=== PATIENT | female | born 1965 | race Caucasian/White ===

== ENCOUNTER 2017-08-18 17:28 | Emergency (ER) | payer OTHER ==
[~2017-08-18] VITALS: Ht 160 cm; Wt 91.6 kg
[~2017-08-18 17:28] MED LIST: ATEN50TA8 PO; IBUP-2213 PO; LISI-420 PO; METF500T PO; OMEP40EC1 PO
[2017-08-18 17:33] VITALS: BP 139/79
[2017-08-18] MEDS: ASPIRIN 325 MG TAB PO ONE (18:50)
[2017-08-18 18:54] LABS: BASOPHILS # (AUTO) 0.1 K/uL (0.00-0.22); BASOPHILS % (AUTO) 0.5 % (0.0-2.0); EOSINOPHILS # (AUTO) 0.5 K/uL (0-0.4); EOSINOPHILS % (AUTO) 3.7 % (0.0-4.0); HEMATOCRIT 41.7 % (36-48); HEMOGLOBIN 13.6 g/dL (12.0-16.0); LYMPHOCYTES # (AUTO) 5.4 K/uL (2.5-16.5); LYMPHOCYTES % (AUTO) 43.5 % (20.5-51.1); MEAN CORPUSCULAR HEMOGLOBIN 29 pg (27-31); MEAN CORPUSCULAR HGB CONC 33 g/dL (33-37); MEAN CORPUSCULAR VOLUME 89.9 fL (80-94); MONOCYTES # (AUTO) 0.8 K/uL (0.8-1.0); MONOCYTES % (AUTO) 6.1 % (1.7-9.3); NEUTROPHILS # (AUTO) 5.8 K/uL (1.8-7.7); NEUTROPHILS % (AUTO) 46.2 % (42.2-75.2); PLATELET COUNT (AUTO) 338 K/uL (140-450); RED BLOOD CELL COUNT(AUTO) 4.64 MIL/uL (4.20-5.40); RED CELL DISTRIBUTION WIDTH 14.7 % (11.6-13.7); WHITE BLOOD COUNT (AUTO) 12.5 K/uL (4.8-10.8)
[2017-08-18 19:09] LABS: ALBUMIN 3.5 g/dL (3.4-5.0); ANION GAP 6.8 (8-16); CARBON DIOXIDE 33.2 mmol/L (21-32); CREATININE 0.9 mg/dL (0.6-1.3); TOTAL BILIRUBIN 0.3 mg/dL (0.0-1.0)
[2017-08-18] MEDS: KETOROLAC 60 MG/2 ML VIAL IM ONE (20:08)
[2017-08-18] MEDS: PANTOPRAZOLE 40 MG TABEC PO ONE (20:08)
[2017-08-18 20:31] VITALS: BP 141/87
== END 2017-08-18 20:30 | disposition home or self-care (01) ==
LOC: MED 17:28
DX: R07.89 Other chest pain (principal); R10.13 Epigastric pain; E11.9 Type 2 diabetes mellitus without complications; K21.9 Gastro-esophageal reflux disease without esophagitis; I10 Essential (primary) hypertension; Z79.899 Other long term (current) drug therapy; Z79.84 Long term (current) use of oral hypoglycemic drugs
CPT/HCPCS: 36415; 71045; 80053; 83880; 84484; 85025; 96372; 99285; J1885

== ENCOUNTER 2017-10-19 17:52 | Emergency (ER) | payer OTHER ==
[~2017-10-19] VITALS: Ht 154.9 cm; Wt 86.2 kg
[2017-10-19 18:07] VITALS: BP 160/101
--- NOTE | 2017-10-19 18:21 | NUR ---
PATIENT AMBULATED TO BED 4. REPORT GIVEN TO MONICA IBARRA.
--- NOTE | 2017-10-19 18:34 | NUR ---
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 BLEEDING WELL CONTROLLED. EDGES WELL APPROXIMATED. PULSES PALPABLE, CAP REFILL LESS THAN 3 AFFECTED EXTREMITY. FULL ROM. PT AAOX4, GCS 15. RR EVEN AND UNLABORED, LUNGS CLEAR. ER MD NOTIFIED. PT NEEDS MET. SAFETY PRECAUTIONS IN PLACE. WILL CONTINUE TO MONITOR.
--- NOTE | 2017-10-19 19:16 | NUR ---
TRANSFER OF CARE AT THIS TIME, REPORT GIVEN TO STACEY GÓMEZ.
[2017-10-19] MEDS ORDERED: HYDROcodone/APAP 10/325 MG 1 TAB TAB PO STA (19:57)
[2017-10-19] MEDS ORDERED: BACITRACIN OINT 500 UNITS/GM PKT TP ONE (21:00)
[2017-10-19 21:47] VITALS: BP 158/91
--- NOTE | 2017-10-19 21:47 | NUR ---
Patient discharged with v/s stable. Written and verbal after care instructions given and explained. Patient alert, oriented and verbalized understanding of instructions. Ambulatory with steady gait. All questions addressed prior to discharge. ID band removed. Patient advised to follow up with PMD. Rx of IBUPROFEN, NORCO given. Patient educated on indication of medication including possible reaction and side effects. Opportunity to ask questions provided and answered.
== END 2017-10-19 21:47 | disposition home or self-care (01) ==
LOC: MED 17:52
DX: S62.525A Nondisplaced fracture of distal phalanx of left thumb, initial encounter for closed fracture (principal); E11.9 Type 2 diabetes mellitus without complications; K21.9 Gastro-esophageal reflux disease without esophagitis; I10 Essential (primary) hypertension; E07.9 Disorder of thyroid, unspecified; Z79.84 Long term (current) use of oral hypoglycemic drugs; Z90.49 Acquired absence of other specified parts of digestive tract; Z93.1 Gastrostomy status; Z90.710 Acquired absence of both cervix and uterus; W23.0XXA Caught, crushed, jammed, or pinched between moving objects, initial encounter; Y93.89 Activity, other specified; Y92.89 Other specified places as the place of occurrence of the external cause; Y99.8 Other external cause status
CPT/HCPCS: 73140; 90471; 90715; 99283; 99284

== ENCOUNTER 2018-01-04 19:21 | Emergency (ER) | payer OTHER ==
[~2018-01-04] VITALS: Ht 154.9 cm; Wt 86.2 kg
[~2018-01-04 19:21] MED LIST changes: -IBUP-2213 PO
--- NOTE | 2018-01-04 19:32 | NUR ---
PT AMBUALTED TO BED #12
[2018-01-04 19:33] VITALS: BP 141/89
--- NOTE | 2018-01-04 19:35 | NUR ---
PT PRESENTED ER WITH C/O OF RIGHT ANKLE PAIN POST STATUS FALL AT 1730. PT STATED SHE TRIPPED AND FELL. PT HAS SOME SWELLING TO THE RIGHT ANKLE. PT DENIES LOC POST STATUS FALL. NO THER BODY PART WAS INJURED AT THE TIME. PT IS A/O X 4. PT TOSIN NKA AND MEDICAL HX HYPERTHYOID, HTN AND HERNIAS. PAIN LEVEL IS 10/10 AT THIS TIME.; SKIN IS PINK/WARM/DRY; VSS; PATIENT POSITIONED FOR COMFORT; HOB ELEVATED; BEDRAILS UP X2; BED DOWN. ER MD MADE AWARE OF PT STATUS.
--- NOTE | 2018-01-04 21:26 | NUR ---
PT IS SITTING UP IN BED, VITALS STABLE.
[2018-01-04] MEDS ORDERED: IBUPROFEN 600 MG TAB PO ONE (22:15)
--- NOTE | 2018-01-04 22:15 | NUR ---
XRAY AT BEDSIDE
[2018-01-04 22:57] VITALS: BP 141/89
--- NOTE | 2018-01-04 22:57 | NUR ---
Patient discharged with v/s stable. Written and verbal after care instructions given and explained. Patient alert, oriented and verbalized understanding of instructions. Ambulatory with crutches for ambulatory assistance. pt tolerated well. All questions addressed prior to discharge. ID band removed. Patient advised to follow up with PMD. Rx of naprosyn was given. Patient educated on indication of medication including possible reaction and side effects. Opportunity to ask questions provided and answered.
== END 2018-01-04 22:57 | disposition home or self-care (01) ==
LOC: MED 19:21
DX: S93.401A Sprain of unspecified ligament of right ankle, initial encounter (principal); K21.9 Gastro-esophageal reflux disease without esophagitis; I10 Essential (primary) hypertension; E11.9 Type 2 diabetes mellitus without complications; E03.9 Hypothyroidism, unspecified; Z79.84 Long term (current) use of oral hypoglycemic drugs; Z79.899 Other long term (current) drug therapy; W01.0XXA Fall on same level from slipping, tripping and stumbling without subsequent striking against object, initial encounter; Y93.89 Activity, other specified; Y92.89 Other specified places as the place of occurrence of the external cause; Y99.8 Other external cause status
CPT/HCPCS: 73610; 99284; Q0092

== ENCOUNTER 2018-04-24 11:09 | Inpatient (IN) | payer OTHER ==
[~2018-04-24] VITALS: Ht 154.9 cm; Wt 85.7 kg
[2018-04-24 11:35] VITALS: BP 166/95
[2018-04-24 12:45] LABS: BASOPHILS % (AUTO) 0.3 % (0.0-2.0); EOSINOPHILS # (AUTO) 0.3 K/uL (0-0.4); EOSINOPHILS % (AUTO) 3.2 % (0.0-4.0); HEMATOCRIT 43.1 % (36-48); LYMPHOCYTES # (AUTO) 3.8 K/uL (2.5-16.5); LYMPHOCYTES % (AUTO) 40.5 % (20.5-51.1); MEAN CORPUSCULAR HEMOGLOBIN 29 pg (27-31); MEAN CORPUSCULAR HGB CONC 33 g/dL (33-37); MEAN CORPUSCULAR VOLUME 89.3 fL (80-94); MONOCYTES # (AUTO) 0.6 K/uL (0.8-1.0); MONOCYTES % (AUTO) 6.6 % (1.7-9.3); NEUTROPHILS # (AUTO) 4.6 K/uL (1.8-7.7); NEUTROPHILS % (AUTO) 49.4 % (42.2-75.2); PLATELET COUNT (AUTO) 337 K/uL (140-450); RED BLOOD CELL COUNT(AUTO) 4.82 MIL/uL (4.20-5.40); RED CELL DISTRIBUTION WIDTH 15.1 % (11.6-13.7); WHITE BLOOD COUNT (AUTO) 9.3 K/uL (4.8-10.8)
[2018-04-24 13:03] LABS: APPEARANCE,URINE HAZY (CLEAR); BILIRUBIN,URINE NEGATIVE (NEGATIVE); BLOOD, URINE TRACE-I (NEGATIVE); COLOR,URINE YELLOW (YELLOW); LEUKOCYTE ESTERASE ,URINE TRACE (NEGATIVE); NITRITE, URINE NEGATIVE (NEGATIVE); PH,URINE 6.5 (5.0-9.0); UGLUCOSE NEGATIVE (NEGATIVE)
[2018-04-24 13:04] LABS: ALBUMIN 3.7 g/dL (3.4-5.0); ANION GAP 10.7 (8-16); CARBON DIOXIDE 29.1 mmol/L (21-32); CREATININE 0.7 mg/dL (0.6-1.3); POTASSIUM 3.8 mmol/L (3.5-5.1); TOTAL BILIRUBIN 0.4 mg/dL (0.0-1.0)
[2018-04-24 13:16] LABS: RBC,URINE 0-5 (RARE) /HPF (0-5)
--- NOTE | 2018-04-24 13:30 | NUR ---
PT. BIB DAUGHTER WITH C/O NON RADIATING MID ABDOMINAL PAIN X 2 DAYS. 10/10 DULL ACHING THAT RADIATES TO R SIDE OF ABD. ABD ROUND AND SOUNDS AND TENDER UPON PALPATION TO MEDIAL PART OF ABD. DENIES ANY V/D. + NAUSEA INTERMITTENT. AFEBRILE. DENIES FEVER AND CHILLS, RR EVEN AND UNLABORED. WILL CONTINUE TO MONITOR. VSS. SAFETY PRECAUTIONS IN PLACE. LBM: YESTERDAY PER PATIENT " NORMAL". DAUGHTER AT BEDSIDE. ER MD MADE AWARE.
--- NOTE | 2018-04-24 14:21 | NUR ---
PT. RESTING COMFORTABLY IN BED, RR EVEN AND UNLABORED. VSS. WILL CONTINUE TO MONITOR.
[2018-04-24] MEDS ORDERED: ONDANSETRON 4 MG/2 ML VIAL IVP ONE (15:35)
[2018-04-24] MEDS ORDERED: NACL 0.9% 1,000 ML IV ONE (15:35)
[2018-04-24] MEDS ORDERED: MORPHINE SULFATE 4 MG/ML SYR IVP ONE (15:35)
--- NOTE | 2018-04-24 16:30 | NUR ---
PT. RESTING COMFORTABLY IN BED, RR EVEN AND UNLABORED. VSS. DAUGHTER AT BEDSIDE.
--- NOTE | 2018-04-24 17:04 | NUR ---
PT TAKEN TO MED FLOOR BY STACEY STEVENS AND EMT WILLIE
[2018-04-24] MEDS ORDERED: HYDROmorphone PFS 2 MG/ML SYR IVP PRN (17:05)
[2018-04-24] MEDS ORDERED: LORazepam 2 MG/ML VIAL IVP PRN (17:05)
[2018-04-24] MEDS ORDERED: ALBUTEROL 0.083% 2.5 MG/3 ML NEBU INH PRN (17:05)
[2018-04-24] MEDS ORDERED: MORPHINE SULFATE 4 MG/ML SYR IVP PRN (17:05)
[2018-04-24] MEDS ORDERED: ONDANSETRON 4 MG/2 ML VIAL IVP PRN (17:05)
[2018-04-24] MEDS ORDERED: INSULIN LISPRO SLIDING SCALE 100 UNITS/ML VIAL SUBQ PRN (17:10)
[2018-04-24] MEDS ORDERED: DEXTROSE 50% 50 ML SYR IVP PRN (17:10)
--- NOTE | 2018-04-24 17:10 | NUR ---
Patient will be admitted to care of DR. TONEY. Admited to MED SURG . Will go to room 112B . Belongings list completed. Report to STACEY QUEEN .
--- NOTE | 2018-04-24 17:12 | NUR ---
RECEIVED BEDSIDE REPORT FROM ER NURSE. PT IS AAOX4. NO S/S OF ACUTE DISTRESS ON ROOM. CC: ABD PAIN. RECEIVED MORPHINE 4MG IN ER. /10 TOLERABLE AT THIS TIME. PT AMBULATED TO THE BED. PT ALSO WENT TO THE BATHROOM TO URINATE. SKIN IS INTACT. IV ON L AC 20G, CLEAN, DRY AND INTACT. LUNG SOUNDS CLEAR, BOWEL SOUNDS ACTIVE, VITALS TAKEN. MRSA SWAB DONE.BED IN LOWEST POSITION. SIDE RAILS UP, CALL LIGHT WITHIN REACH. WILL CONTINUE TO MONITOR.
[2018-04-24 17:15] VITALS: BP 168/90
--- NOTE | 2018-04-24 17:15 | NUR ---
DR TONEY IS HERE TO SEE THE PT. REPORT BP 168/90, DR TONYE SAID HE WILL PUT AN ORDER FOR SBP >170.
[2018-04-24] MEDS ORDERED: hydrALAZINE 20 MG/ML VIAL IVP PRN (17:25)
[2018-04-24] MEDS: SIMETHICONE 80 MG TAB.CHEW PO PRN (17:45)
[2018-04-24] MEDS: LACTATED RINGERS 1,000 ML IV SCH (17:45)
[2018-04-24] MEDS ORDERED: BLOOD GLUCOSE MONITORING 1 DEV DEV FS SCH (18:00)
--- NOTE | 2018-04-24 19:25 | NUR ---
ENDORSED PT TO CARAMEL CUTTER MACHINE. PT IS IN OR RIGHT NOW. Addendum: 04/24/18 at 1946 by Cuong Branch RN WRONG PT, PLEASE DISCARD
--- NOTE | 2018-04-24 19:25 | NUR ---
ENDORSED PT TO CHILDREN'S SERVICE SUPERVISOR. PT RESTING IN BED, IN STABLE CONDITION.
--- NOTE | 2018-04-24 19:26 | NUR ---
REPORT RECEIVED FROM AM NURSE AT BEDSIDE. PT IN STABLE CONDITION. AAOX4. INTRODUCED SELF TO PT AND FAMILY. BOARD UPDATED. NO COMPLAINTS OF PAIN. NO SOB. AFEBRILE. IV SITE L AC 20G RUNNING LR@100ML/HR PATENT AND INTACT. SKIN WARM, DRY, AND INTACT WITH NO OPEN WOUNDS. BED LOCKED IN LOW POSITION. CALL REHMAN WITHIN REACH. SAFETY PRECAUTIONS IN PLACE. ALL NEEDS MET AT THIS TIME.
--- NOTE | 2018-04-24 22:00 | NUR ---
PT AWAKE AND ALERT WATCHING TV IN BED. ALL NEEDS MET AT THIS TIME. WILL CONTINUE TO MONITOR.
[2018-04-25] VITALS: BP 131/74
--- NOTE | 2018-04-25 00:15 | NUR ---
PT SLEEPING COMFORTABLY IN BED. NO COMPLAINTS OF PAIN. NO SOB. WILL CONTINUE TO MONITOR.
--- NOTE | 2018-04-25 02:25 | NUR ---
PT SLEEPING COMFORTABLY IN BED. NO S/S OF DISTRESS NOTED. RESPIRATIONS EVEN, UNLABORED, AND WNL. WILL CONTINUE TO MONITOR.
[2018-04-25] MEDS: LACTATED RINGERS 1,000 ML IV SCH ×2 (04:25→13:58)
--- NOTE | 2018-04-25 04:30 | NUR ---
PT SLEEPING BUT AROUSEABLE. NO S/S OF DISTRESS NOTED. NO COMPLAINTS OF PAIN. NO SOB. AFEBRILE. ALL NEEDS MET AT THIS TIME. WILL CONTINUE TO MONITOR.
--- NOTE | 2018-04-25 07:15 | NUR ---
REPORT GIVEN TO AM NURSE AT BEDSIDE. PT IN STABLE CONDITION.
--- NOTE | 2018-04-25 07:18 | NUR ---
RECEIVED BEDSIDE REPORT FROM WASTE MANAGEMENT SPECIALIST. PATIENT IS AOX4. DENIES OF PAIN. NO SIGNS OF DISTRESS NOTED IN RA. RESPIRATION IS EVEN AND UNLABORED. IV CLEAN, INTACT, AND INFUSING PER MD ORDER. IV SITE IS CLEAN AND DRY. SKIN INTACT, DRY AND CLEAN. PATIENT IS ON NPO PER MD ORDER. PATIENT IS ABLE TO AMBULATE WITH STEADY GAIT. REVIEWED PLAN OF CARE WITH PATIENT, PATIENT VERBALIZED UNDERSTANDING. CALL LIGHT WITHIN REACH, BED IN LOW POSITION. WILL CONTINUE TO MONITOR.
[2018-04-25 07:39] LABS: BASOPHILS % (AUTO) 0.5 % (0.0-2.0); EOSINOPHILS # (AUTO) 0.2 K/uL (0-0.4); EOSINOPHILS % (AUTO) 2.7 % (0.0-4.0); HEMATOCRIT 42.6 % (36-48); HEMOGLOBIN 13.6 g/dL (12.0-16.0); LYMPHOCYTES # (AUTO) 2.4 K/uL (2.5-16.5); LYMPHOCYTES % (AUTO) 31.8 % (20.5-51.1); MEAN CORPUSCULAR HEMOGLOBIN 29 pg (27-31); MEAN CORPUSCULAR HGB CONC 32 g/dL (33-37); MEAN CORPUSCULAR VOLUME 89.3 fL (80-94); MONOCYTES # (AUTO) 0.4 K/uL (0.8-1.0); MONOCYTES % (AUTO) 5.9 % (1.7-9.3); NEUTROPHILS # (AUTO) 4.4 K/uL (1.8-7.7); NEUTROPHILS % (AUTO) 59.1 % (42.2-75.2); PLATELET COUNT (AUTO) 321 K/uL (140-450); RED BLOOD CELL COUNT(AUTO) 4.77 MIL/uL (4.20-5.40); RED CELL DISTRIBUTION WIDTH 15.1 % (11.6-13.7); WHITE BLOOD COUNT (AUTO) 7.5 K/uL (4.8-10.8)
[2018-04-25 08:00] VITALS: BP 136/78
--- NOTE | 2018-04-25 08:13 | NUR ---
PATIENT HAS BEEN SCREENED AND CATEGORIZED HIGH NUTRITION RISK. PATIENT WILL BE SEEN WITHIN 1-2 DAYS OF ADMISSION. 04/25/18-04/26/[address]
[2018-04-25 08:39] LABS: ALBUMIN 3.4 g/dL (3.4-5.0); ANION GAP 11.4 (8-16); CARBON DIOXIDE 29.5 mmol/L (21-32); CREATININE 0.7 mg/dL (0.6-1.3); MAGNESIUM 2.1 mg/dL (1.8-2.4); PHOSPHORUS 2.6 mg/dL (2.5-4.9); POTASSIUM 3.9 mmol/L (3.5-5.1); TOTAL BILIRUBIN 0.8 mg/dL (0.0-1.0)
[2018-04-25] MEDS ORDERED: ENOXAPARIN 40 MG/0.4 ML SYR SUBQ SCH (09:00)
--- NOTE | 2018-04-25 09:15 | NUR ---
PATIENT IS RESTING AT THIS TIME, NO SIGNS OF DISTRESS NOTED. DENIES OF PAIN AND NAUSEA, WILL CONTINUE TO MONITOR.
--- NOTE | 2018-04-25 11:30 | NUR ---
PATIENT IS WALKING AROUND THE HALLWAY WITH DAUGHTER. NO SIGNS OF DISTRESS NOTED. WILL CONTINUE TO MONITOR.
--- NOTE | 2018-04-25 13:22 | NUR ---
04/25/18 RD INITIAL ASSESSMENT COMPLETED PLEASE REFER TO NUTRITION ASSESSMENT UNDER CARE ACTIVITY FOR ESTIMATED NUTRITIONAL NEEDS. 1. CONTINUE NPO DIET MEDICALLY NECESSARY 2. RD PROVIDED NUTRITION EDUCATION ON CONSTIPATION 3. RD TO FOLLOW-UP 3-5 DAYS, MODERATE RISK KVNG OWENS, RD
[2018-04-25] MEDS: SIMETHICONE 80 MG TAB.CHEW PO PRN (13:45)
--- NOTE | 2018-04-25 14:40 | NUR ---
PATIENT IS RESTING ON BED WITH DAUGHTER. DENIES OF NAUSEA AND VOMITING. NO SIGNS OF DISTRESS NOTED. WILL CONTINUE TO MONITOR.
[2018-04-25] MEDS ORDERED: INFLUENZA VIRUS VACCINE QUAD 0.5 ML SYR IMVAC PRN (15:30)
--- NOTE | 2018-04-25 16:00 | NUR ---
DISCHARGE INSTRUCTIONS GIVEN AT BEDSIDE TO PATIENT AND DAUGHTER IN PREFERRED LANGUAGE SRI LANKAN. NEW MEDICATIONS REGIMEN, DIET REGIMEN, DISEASE MANAGEMENT AND FOLLOW UP WITH PCP TEACHINGS ARE PROVIDED. ANSWERED ALL PATIENT'S AND DAUGHTER'S QUESTIONS. REMOVED IV, IV TIP INTACT WITH NO BLEEDING AT IV SITE. ADMINISTERED INFLUENZA VACCINE. REMOVED ID BAND. ESCORTED PATIENT TO THE LOBBY WITH WHEELCHAIR IN A STABLE CONDITION. PATIENT DISCHARGED AT THIS TIME.
== END 2018-04-25 16:00 | disposition home or self-care (01) | DRG 254 ==
LOC: MED 11:09 → MTU 16:28
PROVIDERS: ADMIT Internal Medicine Pulmonary Disease; ATTEND Internal Medicine Pulmonary Disease
DX: K43.9 Ventral hernia without obstruction or gangrene (principal); E66.01 Morbid (severe) obesity due to excess calories; E11.9 Type 2 diabetes mellitus without complications; I10 Essential (primary) hypertension; K21.9 Gastro-esophageal reflux disease without esophagitis; E03.9 Hypothyroidism, unspecified; Z68.35 Body mass index [BMI] 35.0-35.9, adult; Z90.710 Acquired absence of both cervix and uterus; Z79.84 Long term (current) use of oral hypoglycemic drugs; Z79.899 Other long term (current) drug therapy; Z90.49 Acquired absence of other specified parts of digestive tract; Z23 Encounter for immunization
CPT/HCPCS: 36415; 74250; 80053; 81001; 83690; 83735; 84100; 85025; 87081; 87086; 90658; 96374; 96375; 99285; J1650; J1815; J2270; J2405; J7120; Q0092

== ENCOUNTER 2020-07-19 21:52 | Emergency (ER) | payer OTHER ==
[~2020-07-19] VITALS: Ht 154.9 cm; Wt 93.9 kg
[~2020-07-19 21:52] MED LIST changes: -LISI-420 PO; +LISI-487 PO; -METF500T PO; -OMEP40EC1 PO; +OMEP40EC24 PO
[2020-07-19 22:09] VITALS: BP 160/100
--- NOTE | 2020-07-19 22:28 | NUR ---
XRAY AT BEDSIDE.
[2020-07-19] MEDS ORDERED: LEVO0.114 PO (22:35)
[2020-07-19] MEDS ORDERED: LISI-487 PO (22:35)
[2020-07-19] MEDS ORDERED: METO50TE2 PO (22:35)
[2020-07-19 22:42] LABS: BASOPHILS # (AUTO) 0.1 K/uL (0.00-0.22); BASOPHILS % (AUTO) 0.4 % (0.0-2.0); EOSINOPHILS # (AUTO) 0.5 K/uL (0-0.4); EOSINOPHILS % (AUTO) 3.4 % (0.0-4.0); HEMATOCRIT 42.4 % (36-48); HEMOGLOBIN 14.1 g/dL (12.0-16.0); LYMPHOCYTES # (AUTO) 1.8 K/uL (2.5-16.5); LYMPHOCYTES % (AUTO) 12.7 % (20.5-51.1); MEAN CORPUSCULAR HEMOGLOBIN 30 pg (27-31); MEAN CORPUSCULAR HGB CONC 33 g/dL (33-37); MEAN CORPUSCULAR VOLUME 89.5 fL (80-94); MONOCYTES # (AUTO) 0.4 K/uL (0.8-1.0); MONOCYTES % (AUTO) 3.1 % (1.7-9.3); NEUTROPHILS # (AUTO) 11.2 K/uL (1.8-7.7); NEUTROPHILS % (AUTO) 80.4 % (42.2-75.2); PLATELET COUNT (AUTO) 301 K/uL (140-450); RED BLOOD CELL COUNT(AUTO) 4.74 MIL/uL (4.20-5.40); RED CELL DISTRIBUTION WIDTH 14.3 % (11.6-13.7)
[2020-07-19] MEDS ORDERED: ASPIRIN 81 MG TAB.CHEW PO ONE (22:45)
[2020-07-19 22:59] LABS: ANION GAP 11.3 (8-16); CARBON DIOXIDE 27.6 mmol/L (21-32); POTASSIUM 3.9 mmol/L (3.5-5.1); TOTAL BILIRUBIN 0.9 mg/dL (0.0-1.0)
[2020-07-19] MEDS ORDERED: ALUMINUM HYD/MAG/SIMETHICONE 30 ML UDC PO ONE (23:10)
--- NOTE | 2020-07-19 23:42 | NUR ---
Patient discharged with v/s stable. Written and verbal after care instructions RE: HTN given and explained. Patient verbalized understanding. Ambulatory with steady gait. All questions addressed prior to discharge. Advised to follow up with PMD.
[2020-07-19 23:46] VITALS: BP 144/82
== END 2020-07-19 23:46 | disposition home or self-care (01) ==
LOC: MED 21:52
DX: R07.9 Chest pain, unspecified (principal); I10 Essential (primary) hypertension; R10.9 Unspecified abdominal pain; E11.9 Type 2 diabetes mellitus without complications; K21.9 Gastro-esophageal reflux disease without esophagitis; E03.9 Hypothyroidism, unspecified; Z79.899 Other long term (current) drug therapy
CPT/HCPCS: 36415; 71045; 80053; 84484; 85025; 93005; 99285

== ENCOUNTER 2020-10-19 18:12 | Emergency (ER) | payer OTHER ==
[~2020-10-19] VITALS: Ht 154.9 cm; Wt 94.8 kg
[~2020-10-19 18:12] MED LIST changes: +LEVO0.114 PO; +METO50TE2 PO
[2020-10-19 18:30] VITALS: BP 127/86
[2020-10-19] MEDS ORDERED: diphenhydrAMINE 50 MG/ML VIAL IM ONE (19:10)
[2020-10-19] MEDS ORDERED: PROCHLORPERAZINE 10 MG/2 ML VIAL IM ONE (19:10)
[2020-10-19] MEDS ORDERED: KETOROLAC 30 MG/ML VIAL IM ONE (19:10)
[2020-10-19 19:56] VITALS: BP 147/82
== END 2020-10-19 19:56 | disposition home or self-care (01) ==
LOC: MED 18:12
DX: R51.9 Headache, unspecified (principal); H53.149 Visual discomfort, unspecified; K21.9 Gastro-esophageal reflux disease without esophagitis; I10 Essential (primary) hypertension; E07.9 Disorder of thyroid, unspecified; Z79.899 Other long term (current) drug therapy
CPT/HCPCS: 96372; 99284; J0780; J1200; J1885

== ENCOUNTER 2022-08-28 01:11 | Inpatient (IN) | payer OTHER ==
[~2022-08-28] VITALS: Ht 154.9 cm; Wt 60.3 kg
[2022-08-28 01:14] VITALS: BP 153/91
--- NOTE | 2022-08-28 01:25 | NUR ---
TO BED 2 FROM TRIAGE
--- NOTE | 2022-08-28 01:39 | NUR ---
Patient resting in bed, A/Ox4, chest rise and fall symmetrical, no s/s of distress, on monitor.
[2022-08-28 01:46] LABS: HEMOGLOBIN 13.4 g/dL (12.0-16.0); MEAN CORPUSCULAR HEMOGLOBIN 30 pg (27-31); MEAN CORPUSCULAR HGB CONC 33 g/dL (33-37); MEAN CORPUSCULAR VOLUME 92.1 fL (80-94); PLATELET COUNT (AUTO) 317 K/uL (140-450); RED BLOOD CELL COUNT(AUTO) 4.45 MIL/uL (4.20-5.40); RED CELL DISTRIBUTION WIDTH 14.2 % (11.6-13.7); WHITE BLOOD COUNT (AUTO) 7.5 K/uL (4.8-10.8)
[2022-08-28 01:55] LABS: ALBUMIN 3.8 g/dL (3.4-5.0); ANION GAP 11.6 (8-16); CARBON DIOXIDE 29.6 mmol/L (21-32); CREATININE 0.7 mg/dL (0.6-1.3); POTASSIUM 4.2 mmol/L (3.5-5.1); TOTAL BILIRUBIN 0.5 mg/dL (0.0-1.0)
[2022-08-28 02:06] LABS: BASOPHILS % (MANUAL) 3 % (0-2); EOSINOPHILS % (MANUAL) 3 % (0-4); LYMPHOCYTES % (MANUAL) 44 % (20-46); MONOCYTES % (MANUAL) 10 % (5-12)
[2022-08-28 02:34] LABS: APPEARANCE,URINE CLEAR (CLEAR); BILIRUBIN,URINE NEGATIVE (NEGATIVE); BLOOD, URINE NEGATIVE (NEGATIVE); COLOR,URINE YELLOW (YELLOW); LEUKOCYTE ESTERASE ,URINE 1+ (NEGATIVE); NITRITE, URINE NEGATIVE (NEGATIVE); UGLUCOSE NEGATIVE (NEGATIVE)
--- NOTE | 2022-08-28 02:40 | NUR ---
pt. wheeled to ct scan
[2022-08-28 02:51] LABS: OTHER CRYSTALS,URINE SODIUM URATES 1+ /HPF (None Seen); RBC,URINE 0-5 /HPF (0-5)
--- NOTE | 2022-08-28 02:54 | NUR ---
pt. wheeled back to bed 2. attached to [facility]
--- NOTE | 2022-08-28 03:50 | NUR ---
Patient resting in bed, A/Ox4, chest rise and fall symmetrical, no c/o pain or s/s of distress, patient on monitor. Addendum: 08/28/22 at 0623 by [email or web address] Patient resting in bed, A/Ox4, chest rise and fall symmetrical, no s/s of distress, patient on monitor.
--- NOTE | 2022-08-28 04:10 | NUR ---
Patient resting in bed, A/Ox4, chest rise and fall symmetrical, no s/s of distress, patient on monitor.
--- NOTE | 2022-08-28 04:35 | NUR ---
INFORMED DR. COLUNGA REGARDING PT'S PAINS SCALE 10/10
[2022-08-28] MEDS ORDERED: MORPHINE SULFATE 4 MG/ML SYR IVP ONE (05:00)
[2022-08-28] MEDS ORDERED: ONDANSETRON 4 MG/2 ML VIAL IVP ONE (05:00)
--- NOTE | 2022-08-28 05:30 | NUR ---
Patient resting in bed, A/Ox4, chest rise and fall symmetrical, no c/o pain or s/s of distress, patient on monitor.
--- NOTE | 2022-08-28 06:24 | NUR ---
Note dillon in EDM - 08/28/22 at 0624 by [id number] Patient resting in bed, A/Ox4, chest rise and fall symmetrical, no c/o pain or s/s of distress, patient on monitor.
--- NOTE | 2022-08-28 06:24 | NUR ---
Patient resting in bed, A/Ox4, chest rise and fall symmetrical, no s/s of distress, patient on monitor.
[2022-08-28] MEDS ORDERED: LEVO0.083 PO (06:31)
[2022-08-28] MEDS ORDERED: ISOS30TE68 PO (06:31)
[2022-08-28] MEDS ORDERED: FURO-572 PO (06:31)
[2022-08-28] MEDS ORDERED: AMLO-271 PO (06:31)
[2022-08-28] MEDS ORDERED: [UNRECOGNIZED DRUG - CODE] PO (06:31)
[2022-08-28] MEDS ORDERED: LISI-487 PO (06:31)
--- NOTE | 2022-08-28 06:47 | NUR ---
Ng-tube placed via left nostril. pt. tolerated procedure well. radiology called for stat chest xray to confirm placement of ng-tube. Radiology verbalized understanding and stated they "are on the way."
--- NOTE | 2022-08-28 07:24 | NUR ---
Change of shift report given to AM Shift Nurse Tyler IBARRA. AM Shift Nurse Tyler RN verbalized understanding of report, no further questions.
--- NOTE | 2022-08-28 08:20 | NUR ---
a/o times 4, ng tube in place on intermittent suctioning , abd pain 5/10, sr o cm, o2 sat 98% ra, sr up times 2.
[2022-08-28] MEDS ORDERED: LORazepam 2 MG/ML VIAL IVP PRN (08:50)
[2022-08-28] MEDS ORDERED: ACETAMINOPHEN 325 MG TAB PO PRN (08:50)
[2022-08-28] MEDS: NACL 0.9% 1,000 ML IV SCH ×2 (09:10→17:35)
[2022-08-28] MEDS: MORPHINE SULFATE 2 MG/ML SYR IVP PRN ×2 (09:36→21:01)
[2022-08-28] MEDS: ONDANSETRON 4 MG/2 ML VIAL IVP PRN (09:36)
--- NOTE | 2022-08-28 09:42 | NUR ---
medicated for abd pain, 10/04, no n/v, ng tube in place, sr up times 2, o2 sat 98% ra
--- NOTE | 2022-08-28 10:03 | NUR ---
pt. transferred to Med Surg 120A, report given to nurse Wynne pt a and o x4, pt is ambulatory, no events or distress during transport.
--- NOTE | 2022-08-28 10:10 | NUR ---
RECEIVED PT FROM ER AT 1000, PT ARRIVED IN A GURNEY BUT WALKED TO TRANSFER TO BED. PT HAS NGT AND IV . NO SIGNS OF DISTRESS.ORIENTED TO THE NEW ROOM, BED MECHANICS AND CALL LIGHT. WILL CONTINUE TO MONITOR. HOLLI
[2022-08-28] MEDS: PIPERACILLIN/TAZOBACTAM 3.375 GM in DEXTROSE 5% 50 ML IV SCH ×2 (13:42→20:56)
[2022-08-28 14:34] LABS: BASOPHILS % (AUTO) 0.3 % (0.0-2.0); EOSINOPHILS % (AUTO) 0.1 % (0.0-4.0); HEMATOCRIT 39.2 % (36-48); LYMPHOCYTES % (AUTO) 19.7 % (20.5-51.1); MEAN CORPUSCULAR HEMOGLOBIN 30 pg (27-31); MEAN CORPUSCULAR HGB CONC 33 g/dL (33-37); MEAN CORPUSCULAR VOLUME 91.7 fL (80-94); MONOCYTES # (AUTO) 0.5 K/uL (0.8-1.0); MONOCYTES % (AUTO) 4.8 % (1.7-9.3); NEUTROPHILS # (AUTO) 7.6 K/uL (1.8-7.7); NEUTROPHILS % (AUTO) 75.1 % (42.2-75.2); PLATELET COUNT (AUTO) 333 K/uL (140-450); RED BLOOD CELL COUNT(AUTO) 4.27 MIL/uL (4.20-5.40); RED CELL DISTRIBUTION WIDTH 14.3 % (11.6-13.7); WHITE BLOOD COUNT (AUTO) 10.1 K/uL (4.8-10.8)
[2022-08-28 16:00] VITALS: BP 117/63
--- NOTE | 2022-08-28 18:25 | NUR ---
PT DISCHARGED, PICKED HER UP. ID BAND AND IV REMOVED.
--- NOTE | 2022-08-28 19:25 | NUR ---
ENDORSED PT TO AIR BRAKE MECHANIC NURSE CLAIRE FOR CONTINUITY OF CARE. PT IS STABLE, CALL LIGHT WITHIN REACH. MNTAMARA
--- NOTE | 2022-08-28 19:40 | NUR ---
RECEIVED PT FROM DAY RN FOR CONTINUITY OF CARE. PT AWAKE ALERT AND ORIENTED X 4, ON ROOM AIR. FAMILY AT BEDSIDE. NO S/SX OF DISTRESS AT THIS MOMENT. POC DISCUSSED. PT IS STABLE. CALL LIGHT WITHIN REACH. WILL CONTINUE TO MONITOR.
[2022-08-28 20:00] VITALS: BP 108/74
[2022-08-28] MEDS ORDERED: PIPERACILLIN/TAZOBACTAM 3.375 GM VIAL IV ONE (20:35)
--- NOTE | 2022-08-28 21:00 | NUR ---
SCHEDULED MEDICATION GIVEN. PT TOLERATED WELL. WILL CONTINUE TO MONITOR.
[2022-08-29] MEDS: NACL 0.9% 1,000 ML IV SCH ×4 (02:32→22:00)
[2022-08-29] MEDS ORDERED: PIPERACILLIN/TAZOBACTAM 3.375 GM VIAL IV ONE (03:16)
[2022-08-29] MEDS: PIPERACILLIN/TAZOBACTAM 3.375 GM in DEXTROSE 5% 50 ML IV SCH ×4 (04:01→21:33)
[2022-08-29 05:12] LABS: BASOPHILS % (AUTO) 0.4 % (0.0-2.0); EOSINOPHILS # (AUTO) 0.1 K/uL (0-0.4); EOSINOPHILS % (AUTO) 1.7 % (0.0-4.0); HEMOGLOBIN 11.5 g/dL (12.0-16.0); LYMPHOCYTES # (AUTO) 2.7 K/uL (2.5-16.5); LYMPHOCYTES % (AUTO) 31.6 % (20.5-51.1); MEAN CORPUSCULAR HEMOGLOBIN 30 pg (27-31); MEAN CORPUSCULAR HGB CONC 33 g/dL (33-37); MEAN CORPUSCULAR VOLUME 91.7 fL (80-94); MONOCYTES # (AUTO) 0.7 K/uL (0.8-1.0); MONOCYTES % (AUTO) 8.1 % (1.7-9.3); NEUTROPHILS % (AUTO) 58.2 % (42.2-75.2); PLATELET COUNT (AUTO) 271 K/uL (140-450); RED BLOOD CELL COUNT(AUTO) 3.82 MIL/uL (4.20-5.40); RED CELL DISTRIBUTION WIDTH 14.5 % (11.6-13.7); WHITE BLOOD COUNT (AUTO) 8.6 K/uL (4.8-10.8)
[2022-08-29 05:33] LABS: ALBUMIN 2.7 g/dL (3.4-5.0); ANION GAP 9.9 (8-16); CARBON DIOXIDE 26.8 mmol/L (21-32); CREATININE 0.7 mg/dL (0.6-1.3); MAGNESIUM 1.8 mg/dL (1.8-2.4); POTASSIUM 3.7 mmol/L (3.5-5.1)
--- NOTE | 2022-08-29 06:42 | NUR ---
PT IS STABLE. NO ACUTE EVENTS THROUGHOUT THE NIGHT. NO S/SX OF DISTRESS AT THE MOMENT. ALL NEEDS MET. ALL PRECAUTIONS IN PLACE. CALL LIGHT WITHIN REACH. WILL ENDORSE TO DAY SHIFT RN.
--- NOTE | 2022-08-29 07:15 | NUR ---
RECEIVED PT FROM CHILDRENS CLUB ATTENDANT NURSE FOR CONTINUITY OF CARE, PT IS AWAKE, NO SIGNS OF DISTRESS. CALL LIGHT WITHIN REACH.WILL CONTINUE WITH POC. MNURUM
[2022-08-29 08:00] VITALS: BP 107/60
--- NOTE | 2022-08-29 09:59 | NUR ---
PATIENT HAS BEEN SCREENED AND CATEGORIZED LOW NUTRITION RISK. PATIENT WILL BE SEEN WITHIN 7 DAYS OF ADMISSION. 08/28/22-09/04/[address]
--- NOTE | 2022-08-29 13:10 | NUR ---
PT WAS PICKED UP AROUND 1305 BY TRANSPORT, ENDORSED PT TO [facility] VIA PHONE, PT IS STABLE WITH VS WITHIN NORMAL LIMITS. ID BAND AND SALINE LOCK REMOVED. HOLIL
[2022-08-29] MEDS: PANTOPRAZOLE 40 MG INJ VIAL IVP SCH (13:38)
[2022-08-29 16:00] VITALS: BP 107/60
--- NOTE | 2022-08-29 19:25 | NUR ---
ENDORSED TO MERCHANDISE APPRAISER NURSE FOR CONTINUITY OF CARE. PT IS AWAKE AND STABLE, CALL LIGHT WITHIN REACH. MNURUM
--- NOTE | 2022-08-29 20:32 | NUR ---
PER RADIOLOGIST THE X RAY SMALL BOWEL FOLLOW THROUGH WILL BE DONE ROMEL AM , INSTEAD OF TODAY , RESUME DIET , THEN NPO POST MD - INFORMED DR Marco Antonio GUERRERO , NO OBJECTION FROM DR Marco Antonio GUERRERO , WILL CONT. TO MONITOR .
--- NOTE | 2022-08-29 21:20 | NUR ---
AFTER EAT SMALL BITE OF SANDWICH , AND 1 SMALL JELL O , 2 GERRY PT C/O OF PAIN AND BIT NAUSEA BUT NO VOMITING NOTED - FOR CLOSELY WATCH . WILL MEDICATE
[2022-08-29] MEDS: MORPHINE SULFATE 2 MG/ML SYR IVP PRN (21:22)
[2022-08-29] MEDS: ONDANSETRON 4 MG/2 ML VIAL IVP PRN (21:22)
--- NOTE | 2022-08-29 21:22 | NUR ---
BP 135/ 75 , MT 85 , RR 18 , O2 SAT 98 % - WILL MEDICATE FOR PAIN AND NAUSEA , THEN WILL GIVE SCHED . ABX , FOR CLOSELY WATCH .
--- NOTE | 2022-08-29 23:00 | NUR ---
RE ASSESS : PT NO COMPLAIN OF NAUSEA AT THIS TIME , NO VOMITING OCCUR , PER PT PAIN IS LESSEN - WILL CONT. TO MONITOR , CALL LIGHT WITHIN REACH .
[2022-08-30] VITALS: BP 121/60
--- NOTE | 2022-08-30 | NUR ---
REMINDS PT NPO - PT VERBALIZES UNDERSTANDING , CONT. TO MONITOR
--- NOTE | 2022-08-30 02:00 | NUR ---
ROUNDS , NO COMPLAIN MADE , WILL CONT TO MONITOR , CALL LIGHT WITHIN REACH .
--- NOTE | 2022-08-30 04:00 | NUR ---
rounds , no complain made .
[2022-08-30] MEDS: PIPERACILLIN/TAZOBACTAM 3.375 GM in DEXTROSE 5% 50 ML IV SCH ×2 (05:14→13:30)
--- NOTE | 2022-08-30 06:00 | NUR ---
sleeping , but easily arousable , no complain made , will cont. to monitor .
--- NOTE | 2022-08-30 07:46 | NUR ---
update dr. mosley pt had abdl. pain and nausea , but no vomiting after the pt ate last night , s x ray bowel follow through not yet done - per dr. mosley once the result in inform him at once - will endorse to conor barreto
--- NOTE | 2022-08-30 07:49 | NUR ---
endorsed to conor barreto - informed her inform dr. mosley about the result of x ray bowel follow through once result in - conor barreto verbalized understanding .
[2022-08-30 08:00] VITALS: BP 100/68
[2022-08-30] MEDS: NACL 0.9% 1,000 ML IV SCH (08:50)
[2022-08-30] MEDS: PANTOPRAZOLE 40 MG INJ VIAL IVP SCH (09:00)
--- NOTE | 2022-08-30 12:15 | NUR ---
DC [age] YRS OLD FEMALE PATIENT WAS ADMITTED FROM HOME WITH A DX OF INCARCERATED HERNIA. PATIENT HAS A HX OF HTN, HYPOTHYROIDISM , BOWEL OBSTRUCTION 3 HERNIA REPAIRERS, AND GASTRIC SLEEVE. CT ABD SHOWED CLOSED LOOP SBO . DR GUERRERO SEEN PATIENT ORDERED TO CONTINUED NGT SUCTION AND ORDERED SMALL BOWEL XRAY SHOWED NO EVIDENCE OF SBO. DC PLAN AWAITING FOR DR GUERRERO TO SEE PATIENT. CM TO FOLLOW
[2022-08-30 15:59] VITALS: BP 100/68
--- NOTE | 2022-08-30 17:42 | NUR ---
PT DISCHARGED HOME , DISCHARGE INSTRUCTION IS GIVEN , ID AND IV REMOVED . PT LEFT WITH FAMILY WITHOUT ANY DISCOMFORT.[id number]
== END 2022-08-30 17:40 | disposition home or self-care (01) | DRG 254 ==
LOC: MED 01:11 → MTU 08:53
PROVIDERS: ADMIT Hospitalist; ATTEND Hospitalist
PROC: 0D9670Z Drainage of Stomach with Drainage Device, Via Natural or Artificial Opening (ICD-10-PCS; principal; 2022-08-28)
DX: K46.0 Unspecified abdominal hernia with obstruction, without gangrene (principal); R71.0 Precipitous drop in hematocrit; E03.9 Hypothyroidism, unspecified; E83.52 Hypercalcemia; Z20.822 Contact with and (suspected) exposure to COVID-19; K21.9 Gastro-esophageal reflux disease without esophagitis; Z90.710 Acquired absence of both cervix and uterus; Z90.49 Acquired absence of other specified parts of digestive tract
CPT/HCPCS: 36415; 71045; 74021; 74250; 80053; 81001; 83690; 83735; 85025; 87081; 87086; 96374; 96375; 96376; 99285; C9113; J2270; J2405; J2543; J7060; Q9967

== ENCOUNTER 2023-05-03 18:05 | Emergency (ER) | payer OTHER ==
[~2023-05-03] VITALS: Ht 152.4 cm; Wt 59.0 kg
[~2023-05-03 18:05] MED LIST changes: +AMLO-271 PO; -ATEN50TA8 PO; +FURO-572 PO; +ISOS30TE68 PO; +LEVO0.083 PO; -LEVO0.114 PO; -OMEP40EC24 PO; +[UNRECOGNIZED DRUG - CODE] PO
[2023-05-03 18:20] VITALS: BP 126/86; PULSE 86; RESP 18; TEMP 98; O2SAT 98
[2023-05-03 20:18] LABS: BASOPHILS % (AUTO) 0.6 % (0.0-2.0); EOSINOPHILS # (AUTO) 0.2 K/uL (0-0.4); EOSINOPHILS % (AUTO) 2.6 % (0.0-4.0); HEMATOCRIT 37.5 % (36-48); HEMOGLOBIN 12.6 g/dL (12.0-16.0); LYMPHOCYTES % (AUTO) 49.8 % (20.5-51.1); MEAN CORPUSCULAR HEMOGLOBIN 31 pg (27-31); MEAN CORPUSCULAR HGB CONC 34 g/dL (33-37); MEAN CORPUSCULAR VOLUME 90.8 fL (80-94); MONOCYTES # (AUTO) 0.5 K/uL (0.8-1.0); MONOCYTES % (AUTO) 6.6 % (1.7-9.3); NEUTROPHILS # (AUTO) 3.2 K/uL (1.8-7.7); NEUTROPHILS % (AUTO) 40.4 % (42.2-75.2); PLATELET COUNT (AUTO) 281 K/uL (140-450); RED BLOOD CELL COUNT(AUTO) 4.13 MIL/uL (4.20-5.40); RED CELL DISTRIBUTION WIDTH 14.3 % (11.6-13.7); WHITE BLOOD COUNT (AUTO) 7.9 K/uL (4.8-10.8)
[2023-05-03 20:30] LABS: ANION GAP 10.1 (8-16); CALCIUM 9.2 mg/dL (8.5-10.1); CARBON DIOXIDE 30.9 mmol/L (21-32); CREATININE 0.7 mg/dL (0.6-1.3)
[2023-05-03 20:37] LABS: ALBUMIN 3.3 g/dL (3.4-5.0); BILIRUBIN,DIRECT 0.1 mg/dL (0.0-0.3); TOTAL BILIRUBIN 0.2 mg/dL (0.0-1.0); TOTAL PROTEIN, SERUM 7.7 g/dL (6.4-8.2)
[2023-05-03 22:10] VITALS: BP 126/86; PULSE 86; RESP 18; TEMP 98; O2SAT 98
[2023-05-03 22:16] LABS: FLU A ANTIGEN negative (NEGATIVE); FLU B ANTIGEN NEGATIVE (NEGATIVE)
[2023-05-04 01:46] LABS: APPEARANCE,URINE CLEAR (CLEAR); BILIRUBIN,URINE NEGATIVE (NEGATIVE); BLOOD, URINE NEGATIVE (NEGATIVE); COLOR,URINE YELLOW (YELLOW); LEUKOCYTE ESTERASE ,URINE 1+ (NEGATIVE); NITRITE, URINE NEGATIVE (NEGATIVE); PROTEIN,URINE NEGATIVE (NEGATIVE); UGLUCOSE NEGATIVE (NEGATIVE); UROBILINOGEN,URINE 0.2 EU/dL (0.2 - 1)
[2023-05-04] MEDS ORDERED: CIPR500T4 PO (01:56)
[2023-05-04 02:00] LABS: BACTERIA,URINE 10-30 (MOD) /HPF (None Seen); RBC,URINE 0-5 /HPF (0-5)
[2023-05-04 02:01] LABS: MUCUS,URINE 1+ /LPF (None Seen); SQUAMOUS EPITHELIAL CELL,UR 4-10 (MOD) /LPF (0-3 (FEW))
[2023-05-04] MEDS: KETOROLAC 60 MG/2 ML VIAL IM ONE (02:14)
== END 2023-05-04 02:30 | disposition home or self-care (01) ==
LOC: MED 18:05
DX: N39.0 Urinary tract infection, site not specified (principal); Z20.822 Contact with and (suspected) exposure to COVID-19; K21.9 Gastro-esophageal reflux disease without esophagitis; I10 Essential (primary) hypertension; Z86.39 Personal history of other endocrine, nutritional and metabolic disease; Z90.49 Acquired absence of other specified parts of digestive tract; Z98.890 Other specified postprocedural states; Z79.899 Other long term (current) drug therapy; Z79.2 Long term (current) use of antibiotics
CPT/HCPCS: 36415; 74177; 80048; 80076; 81001; 83605; 83690; 85025; 87086; 87426; 87804; 96372; 99285; J1885; Q9967

== ENCOUNTER 2023-09-14 04:15 | Inpatient (IN) | payer OTHER ==
[2023-09-14] VITALS (7 sets, daily range): BP systolic 127–156; BP diastolic 70–93; PULSE 77–80; RESP 14–74; TEMP 97.6–98; O2SAT 98–100
[~2023-09-14] VITALS: Ht 157.5 cm; Wt 49.9 kg
[~2023-09-14 04:15] MED LIST changes: +CIPR500T4 PO; -LISI-487 PO; +LISI-953 PO
[2023-09-14] MEDS ORDERED: KETOROLAC 30 MG/ML VIAL ONE (06:18)
[2023-09-14] MEDS: KETOROLAC 30 MG/ML VIAL IVP ONE (06:22)
[2023-09-14 06:38] LABS: BASOPHILS % (AUTO) 0.3 % (0.0-2.0); EOSINOPHILS % (AUTO) 0.2 % (0.0-4.0); HEMOGLOBIN 13.8 g/dL (12.0-16.0); LYMPHOCYTES # (AUTO) 1.3 K/uL (2.5-16.5); LYMPHOCYTES % (AUTO) 11.8 % (20.5-51.1); MEAN CORPUSCULAR HEMOGLOBIN 30 pg (27-31); MEAN CORPUSCULAR HGB CONC 33 g/dL (33-37); MEAN CORPUSCULAR VOLUME 91.6 fL (80-94); MONOCYTES # (AUTO) 0.4 K/uL (0.8-1.0); MONOCYTES % (AUTO) 3.8 % (1.7-9.3); NEUTROPHILS # (AUTO) 8.9 K/uL (1.8-7.7); NEUTROPHILS % (AUTO) 83.9 % (42.2-75.2); PLATELET COUNT (AUTO) 291 K/uL (140-450); RED BLOOD CELL COUNT(AUTO) 4.59 MIL/uL (4.20-5.40); RED CELL DISTRIBUTION WIDTH 14.2 % (11.6-13.7); WHITE BLOOD COUNT (AUTO) 10.6 K/uL (4.8-10.8)
[2023-09-14 06:42] LABS: APPEARANCE,URINE CLEAR (CLEAR); BILIRUBIN,URINE NEGATIVE (NEGATIVE); BLOOD, URINE NEGATIVE (NEGATIVE); COLOR,URINE YELLOW (YELLOW); LEUKOCYTE ESTERASE ,URINE NEGATIVE (NEGATIVE); NITRITE, URINE NEGATIVE (NEGATIVE); PROTEIN,URINE NEGATIVE (NEGATIVE); UGLUCOSE NEGATIVE (NEGATIVE); UROBILINOGEN,URINE 0.2 EU/dL (0.2 - 1)
[2023-09-14 07:08] LABS: ALANINE AMINOTRANSFERASE 24 U/L (12-78); ALBUMIN 4.1 g/dL (3.4-5.0); ALKALINE PHOSPHATASE 87 U/L (50-136); ASPARTATE AMINOTRANSFERASE 24 U/L (15-37); BILIRUBIN,DIRECT 0.1 mg/dL (0.0-0.3); LIPASE 31 U/L (16-77); TOTAL BILIRUBIN 0.5 mg/dL (0.0-1.0); TOTAL PROTEIN, SERUM 8.1 g/dL (6.4-8.2)
[2023-09-14 07:18] LABS: ANION GAP 13.1 (8-16); CALCIUM 9.7 mg/dL (8.5-10.1); CARBON DIOXIDE 27.8 mmol/L (21-32); CREATININE 0.6 mg/dL (0.6-1.3); POTASSIUM 3.9 mmol/L (3.5-5.1)
[2023-09-14] MEDS ORDERED: METO50TE63 PO (10:49)
[2023-09-14] MEDS ORDERED: AMLO-3 PO (10:49)
[2023-09-14] MEDS ORDERED: LISI20TA29 PO (10:49)
[2023-09-14] MEDS ORDERED: HYDROcodone/APAP 5/325 MG 1 TAB TAB PO PRN (12:05)
[2023-09-14] MEDS ORDERED: MAG SULF 2000 MG/WATER PREMIX 50 ML IV PRN (12:05)
[2023-09-14] MEDS ORDERED: KCL 20 MEQ IN 100 mL PREMIX 200 ML IV PRN (12:05)
[2023-09-14] MEDS: ONDANSETRON 4 MG/2 ML VIAL IVP PRN (12:19)
[2023-09-14] MEDS: NACL 0.9% 1,000 ML IV SCH (12:26)
[2023-09-14] MEDS: MORPHINE SULFATE 4 MG/ML SYR IVP PRN (14:48)
[2023-09-15] MEDS: ACETAMINOPHEN 325 MG TAB PO PRN (00:58)
[2023-09-15 04:00] VITALS: BP 116/73; PULSE 66; RESP 18; TEMP 97.7; O2SAT 96
[2023-09-15 06:37] LABS: BASOPHILS % (AUTO) 0.5 % (0.0-2.0); EOSINOPHILS # (AUTO) 0.1 K/uL (0-0.4); EOSINOPHILS % (AUTO) 1.9 % (0.0-4.0); HEMOGLOBIN 12.2 g/dL (12.0-16.0); LYMPHOCYTES # (AUTO) 2.9 K/uL (2.5-16.5); MEAN CORPUSCULAR HEMOGLOBIN 30 pg (27-31); MEAN CORPUSCULAR HGB CONC 33 g/dL (33-37); MEAN CORPUSCULAR VOLUME 90.4 fL (80-94); MONOCYTES # (AUTO) 0.5 K/uL (0.8-1.0); NEUTROPHILS # (AUTO) 3.2 K/uL (1.8-7.7); NEUTROPHILS % (AUTO) 47.6 % (42.2-75.2); PLATELET COUNT (AUTO) 270 K/uL (140-450); WHITE BLOOD COUNT (AUTO) 6.8 K/uL (4.8-10.8)
[2023-09-15 06:54] LABS: ALBUMIN 3.1 g/dL (3.4-5.0); ANION GAP 11.8 (8-16); CALCIUM 8.5 mg/dL (8.5-10.1); CARBON DIOXIDE 26.5 mmol/L (21-32); CREATININE 0.7 mg/dL (0.6-1.3); MAGNESIUM 1.9 mg/dL (1.8-2.4); POTASSIUM 3.3 mmol/L (3.5-5.1); TOTAL BILIRUBIN 0.8 mg/dL (0.0-1.0); TOTAL PROTEIN, SERUM 6.2 g/dL (6.4-8.2)
[2023-09-15 08:00] VITALS: BP 115/76; PULSE 66; PULSE 77; RESP 18; TEMP 98; O2SAT 98; O2SAT 99
[2023-09-15] MEDS: MAGNESIUM OXIDE 400 MG TAB PO PRN (09:18)
[2023-09-15] MEDS: POTASSIUM CHLORIDE 10 MEQ TABER PO PRN (09:28)
[2023-09-15 16:00] VITALS: BP 130/68; PULSE 85; RESP 18; TEMP 98; O2SAT 99
[2023-09-15 20:00] VITALS: PULSE 85; RESP 18; O2SAT 98
[2023-09-16 04:00] VITALS: BP 126/72; PULSE 64; RESP 18; TEMP 97.1; O2SAT 97
[2023-09-16 06:15] LABS: BASOPHILS % (AUTO) 0.8 % (0.0-2.0); EOSINOPHILS # (AUTO) 0.2 K/uL (0-0.4); EOSINOPHILS % (AUTO) 3.7 % (0.0-4.0); HEMATOCRIT 36.4 % (36-48); HEMOGLOBIN 12.1 g/dL (12.0-16.0); LYMPHOCYTES # (AUTO) 2.5 K/uL (2.5-16.5); MEAN CORPUSCULAR HEMOGLOBIN 30 pg (27-31); MEAN CORPUSCULAR HGB CONC 33 g/dL (33-37); MEAN CORPUSCULAR VOLUME 90.8 fL (80-94); MONOCYTES # (AUTO) 0.3 K/uL (0.8-1.0); MONOCYTES % (AUTO) 6.2 % (1.7-9.3); NEUTROPHILS # (AUTO) 1.8 K/uL (1.8-7.7); NEUTROPHILS % (AUTO) 37.3 % (42.2-75.2); PLATELET COUNT (AUTO) 271 K/uL (140-450); RED BLOOD CELL COUNT(AUTO) 4.01 MIL/uL (4.20-5.40); RED CELL DISTRIBUTION WIDTH 13.8 % (11.6-13.7); WHITE BLOOD COUNT (AUTO) 4.8 K/uL (4.8-10.8)
[2023-09-16 06:43] LABS: ALBUMIN 3.2 g/dL (3.4-5.0); ANION GAP 11.1 (8-16); CALCIUM 8.9 mg/dL (8.5-10.1); CARBON DIOXIDE 27.4 mmol/L (21-32); CREATININE 0.6 mg/dL (0.6-1.3); POTASSIUM 3.5 mmol/L (3.5-5.1); TOTAL BILIRUBIN 0.7 mg/dL (0.0-1.0); TOTAL PROTEIN, SERUM 6.5 g/dL (6.4-8.2)
[2023-09-16 08:00] VITALS: PULSE 78; RESP 18; O2SAT 100
[2023-09-16] MEDS ORDERED: METOCLOPRAMIDE 10 MG/2 ML INJ VIAL IVP PRN (13:50)
[2023-09-16 20:00] VITALS: BP 151/92; PULSE 67; RESP 18; TEMP 97.9; O2SAT 97
[2023-09-17 04:00] VITALS: BP 144/85; PULSE 76; RESP 18; TEMP 97.6; O2SAT 97
[2023-09-17 06:52] LABS: BASOPHILS % (AUTO) 0.7 % (0.0-2.0); EOSINOPHILS # (AUTO) 0.2 K/uL (0-0.4); EOSINOPHILS % (AUTO) 3.6 % (0.0-4.0); HEMATOCRIT 37.2 % (36-48); HEMOGLOBIN 12.4 g/dL (12.0-16.0); LYMPHOCYTES # (AUTO) 2.6 K/uL (2.5-16.5); LYMPHOCYTES % (AUTO) 49.1 % (20.5-51.1); MEAN CORPUSCULAR HEMOGLOBIN 30 pg (27-31); MEAN CORPUSCULAR HGB CONC 33 g/dL (33-37); MONOCYTES # (AUTO) 0.4 K/uL (0.8-1.0); MONOCYTES % (AUTO) 6.8 % (1.7-9.3); NEUTROPHILS # (AUTO) 2.1 K/uL (1.8-7.7); NEUTROPHILS % (AUTO) 39.8 % (42.2-75.2); PLATELET COUNT (AUTO) 292 K/uL (140-450); RED BLOOD CELL COUNT(AUTO) 4.13 MIL/uL (4.20-5.40); RED CELL DISTRIBUTION WIDTH 13.8 % (11.6-13.7); WHITE BLOOD COUNT (AUTO) 5.3 K/uL (4.8-10.8)
[2023-09-17 07:51] LABS: ALBUMIN 3.3 g/dL (3.4-5.0); ANION GAP 13.1 (8-16); CALCIUM 9.1 mg/dL (8.5-10.1); CARBON DIOXIDE 26.9 mmol/L (21-32); CREATININE 0.6 mg/dL (0.6-1.3); MAGNESIUM 1.9 mg/dL (1.8-2.4); TOTAL BILIRUBIN 0.5 mg/dL (0.0-1.0); TOTAL PROTEIN, SERUM 6.8 g/dL (6.4-8.2)
[2023-09-17 08:00] VITALS: BP 139/95; PULSE 98; RESP 18; TEMP 97.4; O2SAT 100
[2023-09-17 08:59] VITALS: PULSE 98; RESP 18; O2SAT 99
[2023-09-17] MEDS ORDERED: METO-485 PO (13:42)
== END 2023-09-17 14:17 | disposition home or self-care (01) | DRG 247 ==
LOC: MED 04:15 → MTU 12:06 → OBSVTOIN 12:06 → MTU 15:18
PROVIDERS: ADMIT Hospitalist; ATTEND Hospitalist
DX: K56.609 Unspecified intestinal obstruction, unspecified as to partial versus complete obstruction (principal); I10 Essential (primary) hypertension; K21.9 Gastro-esophageal reflux disease without esophagitis; Z79.899 Other long term (current) drug therapy; Z90.710 Acquired absence of both cervix and uterus; Z90.49 Acquired absence of other specified parts of digestive tract
CPT/HCPCS: 36415; 74018; 74250; 80048; 80053; 80076; 81003; 83690; 83735; 84484; 85025; 87081; 93005; J1644; J1885; J2270; J2405

== ENCOUNTER 2024-01-07 21:11 | Inpatient (IN) | payer OTHER ==
[~2024-01-07] VITALS: Ht 154.9 cm; Wt 59.9 kg
[~2024-01-07 21:11] MED LIST changes: -AMLO-271 PO; +AMLO-3 PO; -CIPR500T4 PO; -LEVO0.083 PO; -LISI-953 PO; +LISI20TA29 PO; +METO-485 PO; -METO50TE2 PO; +METO50TE63 PO
[2024-01-07 21:15] VITALS: PULSE 57; RESP 20; TEMP 98; O2SAT 100
[2024-01-07 21:25] VITALS: O2SAT 100
[2024-01-07 21:50] LABS: APPEARANCE,URINE CLEAR (CLEAR); BILIRUBIN,URINE NEGATIVE (NEGATIVE); BLOOD, URINE NEGATIVE (NEGATIVE); COLOR,URINE YELLOW (YELLOW); LEUKOCYTE ESTERASE ,URINE 1+ (NEGATIVE); NITRITE, URINE NEGATIVE (NEGATIVE); PH,URINE 6.5 (5.0-9.0); PROTEIN,URINE NEGATIVE (NEGATIVE); UGLUCOSE NEGATIVE (NEGATIVE); UROBILINOGEN,URINE 0.2 EU/dL (0.2 - 1)
[2024-01-07] MEDS: ONDANSETRON 4 MG/2 ML VIAL IVP ONE (21:50)
[2024-01-07] MEDS: NACL 0.9% 1,000 ML IV ONE (21:52)
[2024-01-07] MEDS: MORPHINE SULFATE 4 MG/ML SYR IVP ONE (21:55)
[2024-01-07 21:56] LABS: WHITE BLOOD COUNT (AUTO) 7.8 K/uL (4.8-10.8)
[2024-01-07 22:02] LABS: BASOPHILS % (AUTO) 0.5 % (0.0-2.0); EOSINOPHILS # (AUTO) 0.2 K/uL (0-0.4); EOSINOPHILS % (AUTO) 3.1 % (0.0-4.0); HEMATOCRIT 42.7 % (36-48); LYMPHOCYTES # (AUTO) 3.7 K/uL (2.5-16.5); LYMPHOCYTES % (AUTO) 47.5 % (20.5-51.1); MEAN CORPUSCULAR HEMOGLOBIN 30 pg (27-31); MEAN CORPUSCULAR HGB CONC 33 g/dL (33-37); MONOCYTES # (AUTO) 0.4 K/uL (0.8-1.0); MONOCYTES % (AUTO) 5.8 % (1.7-9.3); NEUTROPHILS # (AUTO) 3.3 K/uL (1.8-7.7); NEUTROPHILS % (AUTO) 43.1 % (42.2-75.2); PLATELET COUNT (AUTO) 316 K/uL (140-450); RED BLOOD CELL COUNT(AUTO) 4.69 MIL/uL (4.20-5.40); RED CELL DISTRIBUTION WIDTH 14.3 % (11.6-13.7)
[2024-01-07 22:03] LABS: BACTERIA,URINE FEW /HPF (None Seen); RBC,URINE 0-5 /HPF (0-5); SQUAMOUS EPITHELIAL CELL,UR 0-3 (FEW) /LPF (0-3 (FEW)); WBC,URINE 0-5 /HPF (0-5)
[2024-01-07 22:05] LABS: ANION GAP 7.1 (8-16); CALCIUM 9.8 mg/dL (8.5-10.1); CARBON DIOXIDE 31.5 mmol/L (21-32); CREATININE 0.8 mg/dL (0.6-1.3); POTASSIUM 3.6 mmol/L (3.5-5.1)
[2024-01-07 22:10] LABS: BILIRUBIN,DIRECT 0.1 mg/dL (0.0-0.3); TOTAL BILIRUBIN 0.3 mg/dL (0.0-1.0); TOTAL PROTEIN, SERUM 8.2 g/dL (6.4-8.2)
[2024-01-07 23:28] VITALS: O2SAT 100
[2024-01-07] MEDS ORDERED: SYN.075 PO (23:44)
[2024-01-08] MEDS: LORazepam 2 MG/ML VIAL IVP ONE (00:16)
[2024-01-08] MEDS ORDERED: KCL 20 MEQ IN 100 mL PREMIX 200 ML IV PRN (00:20)
[2024-01-08] MEDS ORDERED: MAG SULF 2000 MG/WATER PREMIX 50 ML IV PRN (00:20)
[2024-01-08] MEDS ORDERED: MAGNESIUM OXIDE 400 MG TAB PO PRN (00:20)
[2024-01-08] MEDS ORDERED: POTASSIUM CHLORIDE 10 MEQ TABER PO PRN (00:20)
[2024-01-08 01:41] VITALS: BP 168/78; PULSE 77; RESP 18; TEMP 97.7; O2SAT 97
[2024-01-08] MEDS: NACL 0.9% 1,000 ML IV SCH (03:54)
[2024-01-08 04:00] VITALS: BP 165/81; PULSE 63; RESP 21; TEMP 97.4; O2SAT 99
[2024-01-08] MEDS: ACETAMINOPHEN 325 MG TAB PO PRN (04:03)
[2024-01-08] MEDS ORDERED: HYDROcodone/APAP 5/325 MG 1 TAB TAB PO PRN (07:20)
[2024-01-08] MEDS ORDERED: ONDANSETRON 4 MG/2 ML VIAL IVP PRN (07:25)
[2024-01-08 08:00] VITALS: BP 110/83; PULSE 69; RESP 18; TEMP 98.8; O2SAT 100
[2024-01-08 16:00] VITALS: BP 149/78; PULSE 61; RESP 18; TEMP 97.9; O2SAT 100
[2024-01-08 20:00] VITALS: BP 140/70; PULSE 62; RESP 18; TEMP 97.6; O2SAT 100; O2SAT 97
[2024-01-09] VITALS: BP 132/66; PULSE 66; RESP 18; TEMP 97.6; O2SAT 97
[2024-01-09 04:00] VITALS: BP 132/69; PULSE 74; RESP 18; TEMP 98.2; O2SAT 98
[2024-01-09 06:52] LABS: BASOPHILS % (AUTO) 0.6 % (0.0-2.0); EOSINOPHILS # (AUTO) 0.2 K/uL (0-0.4); EOSINOPHILS % (AUTO) 2.8 % (0.0-4.0); HEMATOCRIT 36.6 % (36-48); LYMPHOCYTES # (AUTO) 3.5 K/uL (2.5-16.5); LYMPHOCYTES % (AUTO) 53.2 % (20.5-51.1); MEAN CORPUSCULAR HEMOGLOBIN 30 pg (27-31); MEAN CORPUSCULAR HGB CONC 33 g/dL (33-37); MEAN CORPUSCULAR VOLUME 91.1 fL (80-94); MONOCYTES # (AUTO) 0.4 K/uL (0.8-1.0); MONOCYTES % (AUTO) 6.2 % (1.7-9.3); NEUTROPHILS # (AUTO) 2.4 K/uL (1.8-7.7); NEUTROPHILS % (AUTO) 37.2 % (42.2-75.2); PLATELET COUNT (AUTO) 241 K/uL (140-450); RED BLOOD CELL COUNT(AUTO) 4.02 MIL/uL (4.20-5.40); RED CELL DISTRIBUTION WIDTH 14.5 % (11.6-13.7); WHITE BLOOD COUNT (AUTO) 6.5 K/uL (4.8-10.8)
[2024-01-09 07:04] LABS: INR 1.06 (0.8-1.2); PARTIAL THROMBOPLASTIN TIME 26.4 secs (22-35.6); PROTHROMBIN TIME 11.1 secs (10.8-13.4)
[2024-01-09 07:11] LABS: CALCIUM 8.5 mg/dL (8.5-10.1); CARBON DIOXIDE 28.5 mmol/L (21-32); CREATININE 0.7 mg/dL (0.6-1.3); POTASSIUM 3.5 mmol/L (3.5-5.1); TOTAL BILIRUBIN 0.6 mg/dL (0.0-1.0); TOTAL PROTEIN, SERUM 6.2 g/dL (6.4-8.2)
[2024-01-09 08:00] VITALS: BP 142/79; PULSE 64; PULSE 67; RESP 18; TEMP 98.1; O2SAT 97; O2SAT 99
[2024-01-09 13:07] VITALS: BP 142/79; PULSE 67; RESP 18; TEMP 98.1; O2SAT 99
[2024-01-09 16:00] VITALS: BP 154/55; PULSE 69; RESP 18; TEMP 98.3; O2SAT 97
[2024-01-09 19:23] VITALS: BP 154/55; PULSE 69; RESP 18; TEMP 98.3
== END 2024-01-09 19:40 | disposition home or self-care (01) | DRG 247 ==
LOC: MED 21:11 → MTU 01-08 00:30
PROVIDERS: ADMIT Hospitalist; ATTEND Hospitalist
DX: K56.609 Unspecified intestinal obstruction, unspecified as to partial versus complete obstruction (principal); I10 Essential (primary) hypertension; K21.9 Gastro-esophageal reflux disease without esophagitis; Z79.899 Other long term (current) drug therapy; Z90.710 Acquired absence of both cervix and uterus; Z90.49 Acquired absence of other specified parts of digestive tract
CPT/HCPCS: 36415; 71045; 74250; 80048; 80053; 80076; 81001; 83605; 83690; 83735; 84484; 85025; 85610; 85730; 87081; 87086; 93005; 96361; 96374; 96375; 99285; J2060; J2270; J2405; Q0092